=== PATIENT | female | born 1985 | race Two or more races ===

== ENCOUNTER 2019-10-22 09:26 | Outpatient (AMBR) | payer MEDICAID, SELFPAY ==
--- NOTE | 2019-10-22 10:56 | PTNOTE_ITS ---
PT Outpatient Daily Note Date of Service: October 22, 2019 OP Daily Note Visit Reasons: left knee pain Outpatient Physical Therapy Treatment Date: 10/22/19 Subjective: pt states she is in more pain due to last session. Objective: see flow sheet. Assessment: pt was not able to perform some of the ther ex due to pain of the k nee. she lacks the knee flexion on the L knee due to pain. she took attempted the TG squats but took her a while for her to extend the knee. discontinued the exercise due to increase in pain. pt also was not able to complete the fwd lunges due to increase in pain with knee flexion. she had no difficulty with ascending and descending the step. ice pack post treatment. Plan: continue POC per PT. Length of Time (minutes) of Treatment: 30 Minutes Office Procedures PT Procedures PT Date of Service: 10/22/19 Therapeutic Exercise 30 minutes: Yes
--- NOTE | 2019-10-25 13:24 | PT.ODAYNRPT ---
PT Outpatient Daily Note Date of Service: October 25, 2019 OP Daily Note Visit Reasons: left knee pain Outpatient Physical Therapy Treatment Date: 10/25/19 Subjective: Pt mention that her knee still hurts. Pt has limitation with walking and standing Objective: Please see flow chart for list of ther ex performed Assessment: tolerate exercises with minimal pain; cues to correct FWD lunges Length of Time (minutes) of Treatment: 30 Minutes Office Procedures PT Procedures PT Date of Service: 10/22/19 Therapeutic Exercise 30 minutes: Yes PT Procedures PT Date of Service: 10/25/19 Therapeutic Exercise 30 minutes: Yes
--- NOTE | 2019-10-29 16:01 | PT.ODS1RPT ---
PT OP Progress/Discharge Note Date of Service: 10/29/19 Progress Note/DC Note Progress Note/Discharge Note: DC Note Patient Information Visit Reasons: left knee pain Medical Diagnosis: M25.562 Treatment Dx #1: Left Knee Pain Service Continue Service or Discharge: Discharge Discharge Date: 10/29/19 Status Subjective: Pt mention that her knee continues to hurt the same. Pt still has popping and clicking of the knee. Pt has limitation with squatting, walking, prolonged standing, chores, kneeling, and performing recreational activities. At this time Pt will like to be d/c from care and follow up with provider. Objective: Left Knee AROM: 0 deg to 120 deg Left Knee MMTs Quads: 3+/5 Hs: 3+/5 Left Hip MMTs Glute Med: 3/5 Glute Max: 3/5 Special Test (+) Thessaly Palpation: TTP lateral joint line Assessment: Pt continues to have lateral joint line pain with symptoms consistent of meniscal lesion leading to difficulty with ADLs. Pt will no longer benefit from physical therapy due to minimal progression towards goals. Pt was instructed on HEP last session and educated to continue exercises to maintain overall mobility. Pt performed all exercises safely, thank you for your referrals. Plan: D/C home with HEP and follow up with PCP Office Procedures PT Procedures PT Date of Service: 10/22/19 Therapeutic Exercise 30 minutes: Yes PT Procedures PT Date of Service: 10/25/19 Therapeutic Exercise 30 minutes: Yes PT Procedures PT Date of Service: 10/29/19 Therapeutic Exercise 30 minutes: Yes
== END 2019-11-18 23:59 | disposition home or self-care (01) ==
PROVIDERS: PCP Nurse Practitioner Family; Visit Provider Nurse Practitioner Family
DX: M25.562 Pain in left knee (principal)
CPT/HCPCS: 97110

== ENCOUNTER 2024-05-18 18:13 | Emergency (ER) | payer MEDICAID, SELFPAY ==
[2024-05-18 18:27] VITALS: BP 134/78; PULSE 73; RESP 18; TEMP 36.8; O2SAT 100; BMI 28.5
--- NOTE | 2024-05-18 18:32 | PD.EDRME ---
Rapid Medical Screening Exam RME Arrival date/time: 05/18/24 18:13 39 year old female present to Ed for c/o of ruq/flank pain for a few days. I have greeted and performed a focused initial assessment of this patient. A comprehensive ED assessment and evaluation of the patient, analysis of all test results, and completion of the medical decision making process will be conducted by additional ED providers. Chief Complaint: Abdominal Pain Time Seen by Provider: 05/18/24 18:17 Vital signs: Vital Signs Temperature 98.2 F 05/18/24 18:27 Pulse Rate 73 05/18/24 18:27 Respiratory Rate 18 05/18/24 18:27 Blood Pressure 134/78 H 05/18/24 18:27 Pulse Oximetry (%) 100 05/18/24 18:27 Oxygen Delivery Method Room Air 05/18/24 18:27
--- NOTE | 2024-05-18 18:33 | XR_ITS ---
Examination: Abdomen sonogram, Limited Date and time of exam: May 18, 2024 0 1933 hrs. Indications: Upper abdominal pain beginning 3 days ago Technique: Real-time medina scale transabdominal sonographic images of the upper abdomen obtained. Findings: Contracted gallbladder Cholelithiasis Gallbladder wall 0.4 cm Common bile duct 0.3 cm Pancreatic head 2.2 cm Liver 14.9 cm fatty infiltration no focal liver lesions Normal hepatopedal portal venous flow Patent IVC Impression: Cholelithiasis Borderline thickening gallbladder wall, consider HIDA scan or MRCP follow-up
[2024-05-18 19:09] LABS: Collection Type, Urine Voided
[2024-05-18 19:10] LABS: Basophils # (Auto) 0.1 Thou/mm3 (0.0-0.2); Basophils % (Auto) 1 % (0-2.5); Eosinophils % (Auto) 1 % (0-10); Hematocrit 32.5 % (36.0-46.0); Hemoglobin 10.9 g/dL (12.0-16.0); Immature Granulocytes % (Auto) 0 % (0-0); Immature Granulocytes Auto 0.02 Thou/mm3 (0.00-0.00); Lymphocytes # (Auto) 3.2 Thou/mm3 (1.0-4.8); Lymphocytes % (Auto) 36 % (10-50); Mean Corpuscular HGB Conc 33.5 g/dl (31.0-37.0); Mean Corpuscular Hemoglobin 29.1 pg (25.0-35.0); Mean Corpuscular Volume 87 fL (80-100); Monocytes # (Auto) 0.6 Thou/mm3 (0.0-0.8); Monocytes % (Auto) 7 % (0-12); Neutrophils % (Auto) 56 % (37-80); Nucleated Red Blood Cell % 0 /100 WBC (0); Platelet Count 324 Thou/mm3 (140-440); RDW Standard Deviation 38.8 fL (36.4-46.3); Red Blood Count 3.75 Miln/mm3 (4.00-5.20); White Blood Count 8.9 Thou/mm3 (3.6-11.0)
[2024-05-18 19:12] LABS: Bilirubin,Urine Negative (Negative); Blood,Urine Negative (Negative); Clarity,Urine Clear (Clear/Hazy); Color,Urine Lt-Yellow (Lt Yel-Yel); Glucose, Urine Negative (Negative); Ketones,Urine Negative (Negative); Leukocyte Esterase,Urine Negative (Negative); Nitrite,Urine Negative (Negative); PH,Urine 6.5 (5.0-7.0); Protein,Urine Negative (Neg - Trace); RBC,Urine 2 /hpf (0-3); Specific Gravity,Urine 1.018 (1.001-1.035); Squamous Epithelial Cell,Urine 6 /hpf (0-5); Urobilinogen,Urine Negative mg/dL (0.0-1.0); WBC,Urine 1 /hpf (0-5)
[2024-05-18 19:27] LABS: Alanine Aminotransferase 18 U/L (10-49); Albumin, Serum 4.7 gm/dL (3.5-5.0); Albumin/Globulin Ratio 1.8 (1.2-2.2); Alkaline Phosphatase 87 U/L (46-116); Anion Gap 5 (7-16); Aspartate Amino Transferase 16 U/L (0-34); BUN/Creatinine Ratio 17 Ratio (12-20); Bilirubin,Total 0.3 mg/dL (0.3-1.2); Blood Urea Nitrogen 12 mg/dL (9-23); Calcium 9.2 mg/dL (8.3-10.6); Calcium (Corrected) 9.2 mg/dL (8.5-10.1); Carbon Dioxide 27.1 mMol/L (20.0-31.0); Chloride 104 mMol/L (98-107); Creatinine (Component) 0.7 mg/dL (0.6-1.3); Estimated Creatinine Clearance 104.2 mL/min (>60); Globulin 2.6 gm/dL (2.3-3.5); Glucose 100 mg/dL (74-106); Lipase 58 U/L (12-53); Osmolality,Calculated 271 (275-295); Potassium 3.7 mMol/L (3.4-5.1); Sodium 136 mMol/L (136-145); Total Protein 7.3 gm/dL (5.7-8.2); eGFR > 60 See Note
[2024-05-18 19:37] LABS: HCG,Qualitative Serum Negative
--- NOTE | 2024-05-18 20:10 | XR_ITS ---
Examination: CT abdomen with intravenous contrast CT pelvis with intravenous contrast 2-D coronal reconstructions 2-D sagittal reconstructions Date and time of exam:May 18, 2024 2102 hrs. Comparison November 30, 2021 Indications: Right-sided flank pain right lower abdominal pain onset today. CTDI: vol (mGy) 9.88 DLP: (mGycm) 125 Technique: Multiple axial sections of the abdomen and pelvis have been obtained. 64 slice high-resolution scanner used. 3 mm axial sections have been obtained, post intravenous injection 60 cc [id number] 2-D sagittal, coronal reconstructions obtained. Low dose protocols were performed. One or more of the following dose reduction techniques were used; automated exposure control, adjustment of the mA and/or KV according to patient size, use of iterative reconstruction technique. Findings: No focal liver or splenic lesions No gallstones No pancreatic or adrenal mass No renal or ureteral calculi, no hydronephrosis Aorta normal size Normal appendix No bowel obstruction or diverticulitis Anteverted uterus No adnexal mass Urinary bladder intact Intact osseous structures Impression: No renal or ureteral calculi, no hydronephrosis Normal appendix No bowel obstruction diverticulitis or free air
[2024-05-18 20:11] VITALS: BP 141/50; PULSE 71; RESP 16; TEMP 36.8; O2SAT 100
--- NOTE | 2024-05-18 20:11 | EDNOTE_ITS ---
<Statement entered by Carmen Porter MD - 05/19/24 22:05> As co-signing physician, I was present and available for consult prn. I concur with the plan and care as documented by the midlevel provider. ED Abdominal Pain RME/HPI General Chief Complaint: Abdominal Pain Stated complaint: RIGHT SIDE FLANK PAIN RADIATING TO LRQ Time seen by provider: 05/18/24 18:17 Arrival date/time: 05/18/24 18:13 RME / HPI RME / HPI narrative: 39-year-old female patient with no significant medical history, came in for evaluation regarding right lower quadrant pain. Patient's been having pain to the right flank area radiating to the right lower quadrant, since last night. Pain is described as sharp pain, severity 8 out of 10. Denies any fever denies any vomiting denies any diarrhea denies any constipation denies any hematuria frequency or dysuria. Patient abdominal surgery includes section. Related Data Previous Rx's ?Medication ?Instructions ?Recorded pantoprazole 40 mg tablet,delayed 40 mg PO QDAY #30 tabs 10/19/22 release (Protonix) dicyclomine 20 mg tablet 20 mg PO TID #30 tabs 05/18/24 Allergies Allergy/AdvReac Type Severity Reaction Status Date / Time No Known Allergies Allergy Verified 05/18/24 18:15 Review of Systems Review of Systems Narrative Review of Systems: Review of system reviewed and within normal limits except mentioned in HPI ED Exam Narrative Physical exam: VITAL SIGNS: Reviewed. GENERAL APPEARANCE: Alert and interactive, follows commands, no acute distress, HEAD AND FACE: Non-traumatic. ENT: PERRL, pink conjunctivitis, eyelid no trauma, Mucous membrane moist. NECK: Supple, nontender, no nuchal rigidity. CHEST: No tenderness, no crepitus, no paradoxical movement, no retractions. LUNGS: Clear, well ventilated, symmetric, no rales, no wheezing, no ronchi, no stridor, good breath sounds bilaterally. HEART: Regular rate, regular rhythm, no murmur, no gallops. ABDOMEN: Soft, positive bowel sounds, nondistended, no guarding, right lower quadrant tenderness, no rebound, no masses, RECTAL: Deferred. GENITAL: Deferred. NEUROLOGICAL: Gross motor function intact sensory function intact, Appropriate for age. MUSCULOSKELETAL: low back nontender, full range of motion. EXTREMITIES: Nontender, full range of motion. SKIN: Color pink, dry, no rash, no lacerations, no abrasions, no contusions. LYMPHATICS: Deferred. Course Quality Measures none Orders Category Date Time Status CT Screening NOW Care 05/18/24 20:[address] abdomen pelvis w con Stat Exams 05/18/24 20:10 Completed US abdomen limited Stat Exams 05/18/24 18:33 Completed CBC Stat Lab 05/18/24 19:00 Completed CMP [Comprehensive Metabolic Panel] Stat Lab 05/18/24 19:00 Completed HCG,Qualitative Serum Stat Lab 05/18/24 19:00 Completed Lipase Stat Lab 05/18/24 19:00 Completed UA [Urinalysis] Stat Lab 05/18/24 18:55 Completed Urine Culture Stat Lab 05/18/24 18:55 Received Vital Signs Vital signs: Vital Signs Temperature 98.2 F 05/18/24 18:27 Pulse Rate 73 05/18/24 18:27 Respiratory Rate 18 05/18/24 18:27 Blood Pressure 134/78 H 05/18/24 18:27 Pulse Oximetry (%) 100 05/18/24 18:27 Oxygen Delivery Method Room Air 05/18/24 18:27 Abdominal Pain MDM MDM Narrative MDM Narrative:: 39-year-old female patient with no significant medical history, came in for evaluation regarding right lower quadrant pain. Patient's been having pain to the right flank area radiating to the right lower quadrant, since last night. Pain is described as sharp pain, severity 8 out of 10. Denies any fever denies any vomiting denies any diarrhea denies any constipation denies any hematuria frequency or dysuria. Patient abdominal surgery includes section. Patient's workup today is unremarkable. CT scan of the abdomen showed no acute pathology however ultrasound of the abdomen showed cholelithiasis with no sign of acute cholecystitis. Currently patient is not having any abdominal pain prior to discharge. Patient was advised to follow-up with PCP this coming Tuesday and for referral to general surgeon regarding gallstones. Patient agrees with the plan. Patient data External records reviewed:: None Clinical information provided by:: patient and family Social determinants that could affect healthcare access:: none Patient has the following chronic illnesses:: None How is presenting disease/condition affected by chronic disease/condition?: no chronic disease Evaluation data The following diagnostics were reviewed and interpreted by me:: lab results and radiology exam(s) Lab and/or radiology exams considered but not ordered:: None Interpretation Summary: Laboratory workup all came back unremarkable. No leukocytosis LFTs are normal total bili is normal ultrasound of the gallbladder showed cholelithiasis with no sign of cholecystitis. CT scan of the abdomen came back unremarkable. Medications / Prescriptions Medications or Prescriptions considered but not ordered:: None Medication administrations:: None Consultations Consultation(s) initiated? (list below): No Diagnosis Differential diagnosis abdominal pain: abdominal pain, gastroenteritis and other (Cholelithiasis,) Most likely diagnosis given after review of the tests above:: Cholelithiasis, biliary colic Admission Indicated Admission indicated?: not indicated Explain why admission is indicated or not indicated:: Stable for discharge Admission Request Was there a request for admission?: No Disposition Plan Disposition Plan: Discharge Discharge Attestation Discharge Attestation: The patient and all family members were given an opportunity to ask questions and understood the discharge instructions. Discharge instructions specifically effects, indications for sooner follow up or return to the emergency department, and the expected course of current diagnosis. Patient condition: Stable Discharge Plan Plan Patient Disposition: HOME (Self Care) Disposition Comment: Stable Prescriptions/Referrals Prescriptions/Med Rec: New dicyclomine 20 mg tablet 20 mg PO TID Qty: 30 0RF No Action pantoprazole [Protonix] 40 mg tablet,delayed release (DR/EC) 40 mg PO QDAY Qty: 30 0RF Referrals: Corie Canales KITCHEN MANAGER [Primary Care Provider] - In 1 week Problem List Clinical Impression: Cholelithiasis Patient/Caregiver Discharge Instructions Discharge Activity: activity as tolerated Education Materials: ED Gallstones with Biliary Colic Additional Instructions: Thank you for the opportunity for serving you today. You are stable for discharged . You are advised to: Follow-up with your PCP in 1 to 2 days and as for referral to general surgeon Please avoid eating fatty, greasy, fried foods. Please avoid eating meat Return to ED for worsening of symptoms Increase oral fluids Take medication as prescribed Print Language: Taiwanese Stand Alone Forms: Erica Award Info., Patient Portal Info Letter LAUREN/JOSELYN Supervising Physician ABIOLA Supervising Physician: MD Charlotte
[2024-05-18 23:05] VITALS: BP 132/71; PULSE 73; RESP 17; O2SAT 98
== END 2024-05-18 23:28 | disposition home or self-care (01) ==
PROVIDERS: Physician Assistant; Emergency Provider Emergency Medicine; PCP Nurse Practitioner Family
DX: K80.20 Calculus of gallbladder without cholecystitis without obstruction (principal)
CPT/HCPCS: 36415; 74177; 76705; 80053; 81001; 83690; 84703; 85025; 87086; 99285; A4649; Q9967

== ENCOUNTER 2024-08-09 07:30 | Day surgery (SDC) | payer MEDICAID, SELFPAY ==
[2024-08-08 13:13] LABS: Basophils # (Auto) 0.1 Thou/mm3 (0.0-0.2); Basophils % (Auto) 1 % (0-2.5); Eosinophils % (Auto) 0 % (0-10); Hematocrit 34.7 % (36.0-46.0); Hemoglobin 11.6 g/dL (12.0-16.0); Immature Granulocytes % (Auto) 0 % (0-0); Immature Granulocytes Auto 0.01 Thou/mm3 (0.00-0.00); Lymphocytes # (Auto) 1.8 Thou/mm3 (1.0-4.8); Lymphocytes % (Auto) 31 % (10-50); Mean Corpuscular HGB Conc 33.4 g/dl (31.0-37.0); Mean Corpuscular Hemoglobin 28.7 pg (25.0-35.0); Mean Corpuscular Volume 86 fL (80-100); Monocytes # (Auto) 0.3 Thou/mm3 (0.0-0.8); Monocytes % (Auto) 4 % (0-12); Neutrophils # (Auto) 3.7 Thou/mm3 (1.8-7.7); Neutrophils % (Auto) 63 % (37-80); Nucleated Red Blood Cell % 0 /100 WBC (0); Platelet Count 301 Thou/mm3 (140-440); RDW Standard Deviation 41.1 fL (36.4-46.3); Red Blood Count 4.04 Miln/mm3 (4.00-5.20); White Blood Count 5.9 Thou/mm3 (3.6-11.0)
[2024-08-08 13:32] LABS: Alanine Aminotransferase 12 U/L (10-49); Albumin, Serum 4.3 gm/dL (3.5-5.0); Albumin/Globulin Ratio 1.4 (1.2-2.2); Alkaline Phosphatase 84 U/L (46-116); Anion Gap 9 (7-16); Aspartate Amino Transferase 16 U/L (0-34); BUN/Creatinine Ratio 15 Ratio (12-20); Bilirubin,Total 0.4 mg/dL (0.3-1.2); Blood Urea Nitrogen 9 mg/dL (9-23); Carbon Dioxide 25.7 mMol/L (20.0-31.0); Chloride 103 mMol/L (98-107); Creatinine (Component) 0.6 mg/dL (0.6-1.3); Estimated Creatinine Clearance 114.3 mL/min (>60); Globulin 3.1 gm/dL (2.3-3.5); Glucose 78 mg/dL (74-106); Osmolality,Calculated 273 (275-295); Potassium 3.9 mMol/L (3.4-5.1); Sodium 138 mMol/L (136-145); Total Protein 7.4 gm/dL (5.7-8.2); eGFR > 60 See Note
[2024-08-08 13:40] LABS: HCG,Qualitative Serum Negative
[2024-08-09] VITALS (10 sets, daily range): BP systolic 127–146; BP diastolic 60–88; PULSE 63–94; RESP 12–22; TEMP 36.2–36.6; O2SAT 95–100; BMI 30.2
--- NOTE | 2024-08-09 10:10 | SUR.PHASEI ---
pt received from OR in recovery bay 5. pt obtunded, breathing unlabored on oxymask 8l, oral airway in place. v/s stable. pt dressing to abd dermabond x4 cdi. report received from uSrinder [place] and Ayaz PASTOR.
--- NOTE | 2024-08-09 10:18 | ESOP_ITS ---
Date of Procedure 08/09/24 Pre Op Diagnosis Symptomatic cholelithiasis Post Op Diagnosis Cholelithiasis with cholecystitis Procedure Laparoscopic cholecystectomy Findings Moderately distended gallbladder with small gallstones and chronic cholecystitis Procedure Description Patient was brought into the operating room in supine position. After administration of general endotracheal anesthesia abdomen was prepped and draped in standard surgical manner. A Veress needle was inserted through the umbilicus and pneumoperitoneum was obtained up to 15 mmHg. The Veress needle was then removed, a 5 mm infraumbilical incision was made and the 5mm trocar was inserted. Laparoscopic camera was placed. Under direct visualization a laparoscopic camera a 10 mm trocar was placed in subxiphoid and two 5 mm trocars placed in right upper quadrant. The gallbladder was identified and was noted to be moderately distended with chronic cholecystitis and small gallstones. It was retracted cephalad and laterally. Dissection started near the infundibulum of gallbladder where cystic duct and gallbladder junction clearly identified. The cystic duct was circumferentially dissected off the peritoneum and surrounding inflammatory tissue. The critical view of safety was clearly demonstrated. Cystic duct was then divided between 2 endoclips proximally and one distally. The cystic artery was similarly dissected and divided. The gallbladder was then from the liver bed using electrocautery. The gallbladder was then placed inside an Endo Catch and removed from the abdomen utilizing subxiphoid trocar site. The area was copiously and thoroughly washed and irrigated, all the fluid was suctioned and the suction fluid returned clear. Hemostasis achieved using electrocautery. Endoclips noted be in place and intact without any bleeding or any leakage. Hemostasis was adequate and satisfactory. The subxiphoid trocar sites fascial defect was closed with 0 Vicryl using Endo Closure device. Instruments and trocars removed, pneumoperitoneum was evacuated and the incisions closed with 4-0 Monocryl in subcuticular fashion. Instrument needle and sponge counts were all reported to be correct X2. Patient tolerated the procedure well, was extubated, breathing spontaneously and without difficulty and was transferred to postanesthesia care in stable condition. Anesthesia GETA and local Pathology / specimen Other (Gallbladder and contents) Estimated Blood Loss 10 Condition Stable Disposition PACU Surgeon nYes Sommers MD Surgical Staff Operation Date: 08/09/24 09:30 Case Staff CHIEF INTERNAL AUDITOR: Edgar Henderson RNloan broker: Ally Mariscal
[2024-08-09] MEDS: fentaNYL CIT INJ 50 mCg/ML AMP 2ML IV ×3 (10:41→11:11)
[2024-08-09] MEDS: ONDANSETRON INJ 2 MG/ML INJ 2 ML 4 MG IV (10:43)
[2024-08-09] MEDS: ACETAMINOPHEN IVPB 1,000 MG/100 ML VIAL 250 MG IV (10:46)
--- NOTE | 2024-08-09 11:06 | SUR.PHASEII ---
pt able to tolerate oral fluids without difficultly swallowing or nausea/vomiting.
--- NOTE | 2024-08-09 11:40 | SUR.PHASEII ---
noticed small bump on the front left side of pts forehead during discharge. CRISTOFER Cadena made aware and spoke with pt and pts . Coby Charge nurse made aware of bump as well also spoke with pt and pts . pt not c/o pain to site. informed pt to monitor site and go ER if site gets bigger or starts causing pain.
--- NOTE | 2024-08-09 11:55 | SUR.PHASEII ---
pt awake and alert, breathing unlabored on room air. v/s stable. pt dressing abd dermabond x4 cdi. pt able to ambulate to wheelchair with steady gait. d/c instructions given Broderick in room using non clinical advisor sp 480, all questions answered. pt d/c via wheelchair with all belongings.
== END 2024-08-09 11:55 | disposition home or self-care (01) ==
PROVIDERS: PCP Physician Assistant; Referring Provider Surgery; Visit Provider Surgery
PROC: 0FT44ZZ Resection of Gallbladder, Percutaneous Endoscopic Approach (ICD-10-PCS; CPT 47562; principal; 2024-08-09 09:15)
DX: K80.10 Calculus of gallbladder with chronic cholecystitis without obstruction (principal)
CPT/HCPCS: 47562; 36415; 80053; 84703; 85025; A4217; A4649; J0131; J0694; J1100; J1885; J2250; J2405; J2704; J3010; J3490